=== PATIENT | male | born 1970 | race Caucasian/White ===

== ENCOUNTER 2018-02-09 08:55 | Emergency (ER) | payer MEDICAID ==
[~2018-02-09] VITALS: Ht 175.3 cm; Wt 104.5 kg
[2018-02-09 09:05] VITALS: Ht 175.3 cm; Wt 104.5 kg
[2018-02-09 09:41] LABS: BASOPHILS 0.3 % (0-2); EOSINOPHILS 2.3 % (0-7); HEMOGLOBIN 15.3 g/dL (13.5-17.5); IMMATURE GRANULOCYTES 0.1 % (0-5); LYMPHOCYTES 21.9 % (15-50); MCHC 34.8 g/dL (31.0-37.0); MCV 86.3 fL (80.0-100.0); MEAN PLATELET VOLUME 9.3 fL (7.4-10.4); MONOCYTES 9.3 % (2-11); NEUTROPHILS 66.1 % (40-80); PLATELET COUNT 192 10x3/uL (130-400); RDW 12.5 % (11.5-14.5); WBC 7.8 10x3/uL (4.8-10.8)
[2018-02-09 09:57] LABS: ALBUMIN 3.7 g/dL (3.4-5.0); ALKALINE PHOSPHATASE 52 U/L (46-116); ALT (SGPT) 130 U/L (10-68); AMYLASE - SERUM 33 U/L (25-115); BILIRUBIN - TOTAL 0.65 mg/dL (0.2-1.3); CALC OSMOLALITY 270 mosm/kg (275-300); CALCIUM 8.5 mg/dL (8.5-10.1); CARBON DIOXIDE 27.5 mmol/L (21.0-32.0); CHLORIDE - SERUM 100 mmol/L (98-107); CREATININE - SERUM 0.9 mg/dL (0.6-1.3); GLUCOSE 133 mg/dL (74-106); LIPASE 267 U/L (73-393); POTASSIUM - SERUM 3.6 mmol/L (3.5-5.1); PROTEIN - SERUM 7.4 g/dL (6.4-8.2); SODIUM 134 mmol/L (136-145); UREA NITROGEN 14 mg/dL (7-18); eGFR NON AFRICAN AMERICAN > 90 mL/min (90-120)
[2018-02-09] MEDS ORDERED: ULTRAM50 MG PO (13:07)
[2018-02-09] MEDS ORDERED: PHENERGAN25 M1 PO (13:07)
[2018-02-09 13:40] VITALS: BP 127/87
== END 2018-02-09 13:30 | disposition home or self-care (01) ==
LOC: D.ER 08:55
PROVIDERS: Family Medicine
DX: A08.4 Viral intestinal infection, unspecified (principal); F17.200 Nicotine dependence, unspecified, uncomplicated

== ENCOUNTER 2018-09-25 04:32 | Emergency (ER) | payer SELFPAY ==
[~2018-09-25] VITALS: Ht 175.3 cm; Wt 108.2 kg
[~2018-09-25 04:32] MED LIST: PHENERGAN25 M1 PO; ULTRAM50 MG PO
[2018-09-25 04:36] VITALS: Ht 175.3 cm; Wt 108.2 kg
[2018-09-25] MEDS ORDERED: IBUPROFEN800 MG PO (06:53)
[2018-09-25] MEDS ORDERED: CYCLOBENZAPRINE10 MG PO (06:53)
[2018-09-25] MEDS ORDERED: ACETAMINOPHEN500 M1 PO (06:53)
[2018-09-25 08:20] VITALS: BP 118/81
== END 2018-09-25 08:20 | disposition home or self-care (01) ==
LOC: D.ER 04:32
DX: M25.562 Pain in left knee (principal); M25.511 Pain in right shoulder; W18.30XA Fall on same level, unspecified, initial encounter; Y93.89 Activity, other specified; Y92.019 Unspecified place in single-family (private) house as the place of occurrence of the external cause